=== PATIENT | male | born 1945 | race Caucasian/White ===

== ENCOUNTER 2017-01-13 09:00 | Emergency (ER) | payer MEDICARE, BC ==
[~2017-01-13] VITALS: Ht 172.7 cm; Wt 100.0 kg
[~2017-01-13 09:00] MED LIST: FENO200C8; FOLI-49 PO; LOSA25TA2
[2017-01-13 09:05] VITALS: Ht 172.7 cm; Wt 100.0 kg
[2017-01-13] MEDS ORDERED: CEPH-443 PO (10:31)
[2017-01-13] MEDS ORDERED: SULF1TAB31 PO (10:31)
--- NOTE | 2017-01-13 11:07 | ERD ---
ER Documentation Chief Complaint Date/Time DATE: 01/13/17 TIME: 11:00 Chief Complaint RT GROIN ABCESS X 5 DAYS HPI This is a 71-year-old male presenting to the emergency department for abscess to right groin. Patient states he developed pain and swelling to medial right groin for the past 5 days. Patient states pain and swelling had worsened over the past 5 days.Patient states then yesterday he noticed drainage and bleeding from right groin and that had swelling had gone down significantly. Patient states today he continues to drain light pink/yellow fluid. Patient states pain is minimal. No numbness or tingling to area. No loss of sensation. No testicular swelling or erythema.Patient denies fever chills. ROS All systems reviewed and are negative except as per history of present illness. Medications Home Meds Active Scripts Cephalexin* (Keflex*) 500 Mg Capsule, 500 MG PO QID for 5 Days, CAP Prov:ABIDA SHULTZ NP 01/13/17 Sulfamethoxazole/Trimethoprim* (Bactrim Ds* Tablet) 1 Each Tablet, 1 TAB PO BID , #14 TAB Prov:ABIDA SHULTZ NP 01/13/17 Reported Medications Folic Acid* (Folic Acid*) 1 Mg Tablet, 1 MG PO DAILY, TAB 12/22/15 Fenofibrate, Micronized* (Fenofibrate*) 200 Mg Capsule, DAILY 01/12/12 Losartan Potassium* (Cozaar*) 25 Mg Tablet, DAILY 01/12/12 Allergies Allergies: Coded Allergies: No Known Allergy (Unverified , 12/22/15) PMhx/Soc History of Surgery: Yes (Multi joint surgery) Anesthesia Reaction: No Hx Neurological Disorder: No Hx Respiratory Disorders: No Hx Cardiac Disorders: Yes (HTN) Hx Psychiatric Problems: No Hx Miscellaneous Medical Probl: Yes (Coclear implany, high cholesterol) Hx Alcohol Use: No Hx Substance Use: No Hx Tobacco Use: No Smoking Status: Never smoker Physical Exam Vitals Vital Signs Date Time Temp Pulse Resp B/P Pulse Ox O2 Delivery O2 Flow Rate FiO2 01/13/17 09:05 98.5 98 18 123/56 96 Physical Exam Const: No acute distress, alert Head: Atraumatic Eyes: Normal Conjunctiva ENT: Normal External Ears, Nose and Mouth. Skin: Erythema to medial aspect of right groin . There is a small puncture to medial right groin with serosanguineous drainage. No bleeding. No induration. Back: No midline or flank tenderness Ext: No cyanosis, or edema Neur: Awake and alert Psych: Normal Mood and Affect Procedures/MDM .MDM: This is a 71-year-old male presenting to the emergency department with right groin abscess for the past 5 days. Patient states abscess started draining yesterday. Pain and swelling has gone down significantly according to patient. Patient is afebrile upon arrival to ED. Physical exam is overall unremarkable and reveals slight erythema to right groin with serosanguineous drainage. No active discharge or bleeding on the ED. Patient's vital signs are stable. Patient denies pain. Low suspicion for deep space infection. Patient diagnosis is abscess. Patient is appropriate for outpatient management and will given prescription for Keflex and Bactrim. Instructed patient and patient's to follow-up with primary care provider in the next 2-3 days for wound check and additional management. Instructed patient that he may follow-up with ER for wound check as needed in the next 2-3 days. Return to ED for any high fever, chest pain, difficulty breathing, shortness breath, wheezing, vomiting, diarrhea, abdominal pain or any new or worsening symptoms. Patient and patient's verbalize understanding. All questions answered at discharge. Disclaimer: Inadvertent spelling and grammatical errors are likely due to EHR/ dictation software use and do not reflect on the overall quality of patient care. Also, please note that the electronic time recorded on this note does not necessarily reflect the actual time of the patient encounter. Departure Diagnosis: Primary Impression: Abscess Condition: Stable Patient Instructions: Abscess Drainage, Abscess, Antiobiotic Treatment Only Referrals: DOMINIC KIRAN MD (PCP) Additional Instructions: Follow up in 2 days in your clinic for wound check. Return to ED for any high fever, chest pain, difficulty breathing, shortness breath, wheezing, vomiting, diarrhea, abdominal pain or any new or worsening symptoms. ABIDA SHULTZ NP Jan 13, 2017 11:07
== END 2017-01-13 11:33 | disposition home or self-care (01) ==
LOC: FTE 09:00
DX: L02.214 Cutaneous abscess of groin (principal); I10 Essential (primary) hypertension
CPT/HCPCS: 99284

== ENCOUNTER 2017-09-22 16:34 | Emergency (ER) | END 2017-09-22 19:51 | disposition home or self-care (01) ==

== ENCOUNTER 2017-12-19 16:41 | Emergency (ER) | END 2017-12-19 22:30 | disposition home or self-care (01) ==